=== PATIENT | male | born 1950 | race Caucasian/White ===

== ENCOUNTER 2019-08-23 06:12 | Inpatient (IN) | payer MEDICARE ==
[2019-08-23] MEDS ORDERED: Midazolam HCl 2 mg/2 ml Vial ONE (06:33)
[2019-08-23] MEDS ORDERED: Fentanyl 100 MCG/2 ML VIAL ONE ×3 (06:33→10:06)
[2019-08-23] MEDS ORDERED: Sodium Chloride 0.9% 10 ML ONE (07:08)
[2019-08-23 07:13] LABS: #Eosinphils 0.1 thou/uL (0.0-0.7); #Lymphocytes 1.4 thou/uL (1.20-3.40); #Monocytes 0.4 thou/uL (0.11-0.59); #Neutrophils 2.3 thou/uL (1.40-6.50); %Basophils 0.7 % (0.0-1.0); %Eosinophils 3.1 % (0.0-10.0); %Monocytes 9.9 % (0.0-10.0); %Neutrophils 54.3 % (42.0-75.0); Hemoglobin 14.3 g/dL (14.0-18.0); Mean Corpuscular HGB CONC 33.9 g/dL (32.0-36.0); Mean Corpuscular Hemoglobin 31.8 pg (27.0-31.0); Mean Corpuscular Volume 93.9 fL (78.0-98.0); Mean Platelet Volume 8.1 fL (7.4-10.4); Platelet Count 149 thou/uL (130-400); RBC Distribution Width 12.3 % (11.5-14.5); Red Blood Cell (RBC) Count 4.48 mill/uL (4.70-6.10); White Blood Cell (WBC) Count 4.3 thou/uL (4.8-10.8)
[2019-08-23 07:23] LABS: Anion Gap 9 mmol/L (10-20); BUN (Urea Nitrogen) 17 mg/dL (8.4-25.7); Calc. Creatinine Clearance 99 mL/min (70-130); Calcium 8.7 mg/dL (7.8-10.44); Carbon Dioxide 27 mmol/L (23-31); Chloride 109 mmol/L (98-107); Estimated GFR-MDRD Greater than 90; Glucose 91 mg/dL (80-115); Potassium 4.2 mmol/L (3.5-5.1); Sodium 141 mmol/L (136-145)
[2019-08-23] MEDS ORDERED: Promethazine HCl 25 MG/ML VIAL IM PRN ×2 (09:46→10:04)
[2019-08-23] MEDS ORDERED: Ondansetron HCl/PF 4 MG/2 ML Vial IVP PRN ×2 (09:46→10:19)
[2019-08-23] MEDS ORDERED: Promethazine HCl 25 MG/ML VIAL SLOW IVP PRN (09:46)
[2019-08-23] MEDS ORDERED: Promethazine HCl 12.5 MG SUPP PR PRN (10:04)
[2019-08-23] MEDS ORDERED: Morphine 4 MG/ML VIAL SLOW IVP PRN (10:04)
[2019-08-23] MEDS ORDERED: Milk Of Magnesia 30 ML UDCUP PO PRN (10:04)
[2019-08-23] MEDS ORDERED: diphenhydrAMINE 25 MG CAP PO PRN (10:04)
[2019-08-23] MEDS ORDERED: traMADol HCl 50 MG TAB PO PRN ×2 (10:04)
[2019-08-23] MEDS ORDERED: diphenhydrAMINE 50 MG/ML VIAL IVP PRN (10:04)
[2019-08-23] MEDS ORDERED: tiZANidine HCl 4 MG TAB PO PRN ×2 (10:04→16:35)
[2019-08-23] MEDS ORDERED: Mag-Al 1200 mg/1200 mg/30 ML UDCUP PO PRN (10:04)
[2019-08-23] MEDS ORDERED: Promethazine 25 MG TAB PO PRN (10:04)
[2019-08-23] MEDS ORDERED: Ondansetron PF 4 MG/2 ML Vial IVP PRN (10:16)
[2019-08-23] MEDS ORDERED: Non-Formulary Medication 1 EACH PO PRN (10:19)
[2019-08-23] MEDS ORDERED: PACU-Morphine 4MG/ML VIAL SLOW IVP PRN ×2 (10:19→10:23)
[2019-08-23] MEDS ORDERED: Morphine 4 MG/ML VIAL ONE (10:19)
[2019-08-23] MEDS ORDERED: Morphine Sulfate 2 MG/ML SYRINGE SLOW IVP PRN (10:19)
[2019-08-23] MEDS ORDERED: Promethazine HCl 25 MG/ML VIAL IM/IV PRN (10:19)
[2019-08-23] MEDS ORDERED: Morphine 2 MG/ML SYRINGE SLOW IVP PRN (10:30)
[2019-08-23] MEDS ORDERED: Morphine 2 MG/ML SYRINGE ONE ×2 (10:39→11:18)
[2019-08-23 12:12] VITALS: BMI 26.3
[2019-08-23] MEDS: Sodium Chloride 0.9% 1,000 ML IV SCH (12:23)
[2019-08-23] MEDS ORDERED: PROPOFOL 200 MG/20 ML VIAL ONE (13:14)
[2019-08-23] MEDS ORDERED: Dexamethasone 20 MG/5 ML VIAL ONE (13:14)
[2019-08-23] MEDS ORDERED: Ketorolac Tromethamine 30 MG/ML VIAL ONE (13:14)
[2019-08-23] MEDS ORDERED: ePHEDrine 50 MG/ML VIAL ONE (13:14)
[2019-08-23] MEDS ORDERED: Rocuronium Bromide 10 MG/ML (10ML VIAL) ONE (13:14)
[2019-08-23] MEDS ORDERED: Ondansetron PF 4 MG/2 ML Vial ONE (13:14)
[2019-08-23] MEDS ORDERED: Glycopyrrolate 0.2 MG/ML 5 ML SYRINGE ONE (13:14)
[2019-08-23] MEDS: CEFAZOLIN 2 GM in Premix Bag 1 BAG IVPB SCH ×2 (14:20→22:15)
[2019-08-23] MEDS: HYDROcodone/Acetaminophen 10/325 mg Tablet PO PRN ×3 (14:21→22:14)
--- NOTE | 2019-08-23 15:52 | OP ---
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 PROCEDURE PERFORMED: Anterior cervical diskectomy, C3 through C6; interbody arthrodesis; intervertebral biomechanical device; local morselized autograft; demineralized bone matrix; anterior titanium instrumentation, C3 through C6. DESCRIPTION OF PROCEDURE: The patient was brought to the operating room and intubated. He was positioned supine with head in modest extension on a gel-filled donut. An incision was made in the right precervical area and dissected medial to the sternocleidomastoid muscle, identified the anterior cervical spinal, and the level was confirmed by x-ray. Debrided the anterior osteophytes, placed distraction across the disk spaces, and completely decompressed the intervertebral disk at C3-C4, C4-C5 and C5-C6, completely decompressing the neural elements. Bony endplates were then decorticated for the purpose of arthrodesis and appropriate-sized intervertebral biomechanical PEEK device was brought into the field, filled with demineralized bone matrix and local morselized autograft, and tapped into place securely at C3-C4 and at C4-C5. Next, an anterior plate was brought into the field and secured to C3, C4, C5, and C6 using two 14-mm screws at each level. The wound was then extensively irrigated and MAC hemostasis was secured. The wound was closed in anatomic layers over drain. Job ID: [id number]
[2019-08-23] MEDS ORDERED: Cepastat Lozenges 1 LOZ PO PRN (16:47)
[2019-08-23] MEDS ORDERED: Cepastat Lozenges 1 LOZ PO SCH (17:00)
[2019-08-23] MEDS ORDERED: Chloraseptic Spray 180 ml Bottle PO PRN (17:14)
--- NOTE | 2019-08-23 17:22 | CON ---
DATE OF CONSULTATION: 08/23/2019 PRIMARY CARE PROVIDER: Out of town, [place]. CHIEF COMPLAINT: Management of medical comorbidities. HISTORY OF PRESENT ILLNESS: Mr. Huitron is a pleasant 69-year-old gentleman, who was seen at [facility] on August 23, 2019. Earlier today, he underwent anterior cervical diskectomy, C3 through C6; interbody arthrodesis, intervertebral biomechanical device, local morselized autograft, demineralized bone matrix, and anterior titanium instrumentation, C3 through C6. Hospitalist Service has been consulted by Neurosurgery Service for management of medical comorbidities. Mr. Huitron reports discomfort at the surgical site. He also reports sore throat. He denies any chest pain or shortness of breath. He denies any cough, fevers, or chills. He denies any nausea or vomiting. He denies any abdominal pain. REVIEW OF SYSTEMS: All systems were reviewed and found to be negative except for the pertinent positives mentioned above. PAST MEDICAL HISTORY: Hypertension; dyslipidemia; coronary artery disease, status post PCI with stents; nephrolithiasis; and restless legs syndrome. PAST SURGICAL HISTORY: Hernia surgery x2, nose surgery, PCI with coronary stents, and surgery for nephrolithiasis. SOCIAL HISTORY: The patient is an ex-smoker. He denies any alcohol use or recreational drug use. FAMILY HISTORY: Significant for myocardial infarction in both parents. ALLERGIES: NO KNOWN DRUG ALLERGIES. HOME MEDICATIONS: 1. Tylenol No. 3. 2. Aspirin 81 mg daily. 3. Lipitor 80 mg in the evening. 4. Coreg 3.125 mg in the evening. 5. Vitamin D3 2000 units two times a day. 6. Prozac 40 mg daily. 7. Folic acid 0.8 mg daily. 8. Gabapentin 800 mg three times a day. 9. Levocetirizine 5 mg daily. 10. Lisinopril 5 mg daily. 11. Singulair 10 mg daily. 12. Pentoxifylline 400 mg two times a day. 13. Pramipexole 0.5 mg in the evening. 14. Ranitidine 150 mg two times a day. 15. Trazodone 100 mg at bedtime. 16. Tizanidine p.r.n. PHYSICAL EXAMINATION: GENERAL: On examination, Mr. Huitron is awake and alert, not in acute distress. VITAL SIGNS: Blood pressure is 152/80, pulse 54, respiratory rate 16, and oxygen saturation 93% on room air. He is afebrile. HEENT: Eyes; no scleral icterus, no conjunctival pallor. ENT; moist mucosal membranes. No oropharyngeal erythema or exudates. NECK: Dressing over the neck, with a drain. Neck is supple. RESPIRATORY: Accessory muscles of breathing are not active. Chest wall movements are symmetric bilaterally. LUNGS: Clear to auscultation without wheeze, rhonchi, or crepitations. CARDIOVASCULAR: S1 and S2 are heard, regular. Peripheral pulses palpable. NEUROLOGIC: Cranial nerves 2 through 12 are intact. MUSCULOSKELETAL: The patient is moving all 4 extremities. ABDOMEN: Soft, nontender. Bowel sounds heard. SKIN: No rashes or subcutaneous nodules. LYMPHATIC: No lymphadenopathy. PSYCHIATRIC: Normal mood, normal affect. The patient is oriented to person, place, and time. LABORATORY DATA: Mr. Huitron's labs and investigations were reviewed. He has leukopenia with 4300 white cells, normal hemoglobin, normal platelet count. Normal sodium, normal potassium, and normal creatinine. ASSESSMENT AND PLAN: Mr. Huitron is a pleasant 69-year-old gentleman, who was seen at [facility] on August 23, 2019 for management of medical comorbidities. His problem list includes: 1. Hypertension: We will resume home medications including lisinopril and carvedilol. We will monitor vital signs and titrate antihypertensives as needed. 2. Dyslipidemia: We will continue Lipitor. 3. Coronary artery disease: Stable, the patient denies any chest pain. We will hold aspirin and pentoxifylline during the post neurosurgical period. 4. Restless legs syndrome: Continue Mirapex. 5. Sore throat: No obvious pharyngeal lesions, most likely secondary to intubation. We will start him on p.r.n. lozenges. Many thanks for allowing me to participate in your patient's care. Please feel free to contact me with any questions or concerns. LEVEL OF RISK: Moderate. LEVEL OF COMPLEXITY: Moderate. Job ID: [id number]
[2019-08-23] MEDS: Famotidine 20 MG TAB PO SCH (20:14)
[2019-08-23] MEDS: Gabapentin 400 MG CAP PO SCH (20:14)
[2019-08-23] MEDS ORDERED: Montelukast Sodium 10 mg Tablet PO SCH (21:00)
[2019-08-23] MEDS ORDERED: Pramipexole Di-HCl 0.25 MG TAB PO SCH (21:00)
[2019-08-23] MEDS ORDERED: Carvedilol 3.125 MG TAB PO SCH (21:00)
[2019-08-23] MEDS ORDERED: Atorvastatin Calcium 40 MG TAB PO SCH (21:00)
[2019-08-23] MEDS ORDERED: traZODone HCl 50 MG TAB PO SCH (21:00)
[2019-08-24] MEDS: HYDROcodone/Acetaminophen 10/325 mg Tablet PO PRN ×3 (02:12→10:34)
[2019-08-24] MEDS: Sodium Chloride 0.9% 1,000 ML IV SCH (02:16)
[2019-08-24] MEDS: CEFAZOLIN 2 GM in Premix Bag 1 BAG IVPB SCH (06:01)
[2019-08-24 08:13] VITALS: BP 138/76; TEMP 97.4
--- NOTE | 2019-08-24 08:52 | DIS ---
DATE OF ADMISSION: 08/23/2019 DATE OF DISCHARGE: 08/24/2019 HOSPITAL COURSE: The patient is a 69-year-old male, who was recently seen in our office for progressive neck pain and found to have degenerative changes from C3-C6. He underwent C3-C6 ACDF on 08/23/2019. Following the surgery, he was transitioned to the Med/Surg floor, where his pain has been well-controlled with p.o. medications. He has had some mild dysphagia, but is otherwise tolerating a regular diet, and he is voiding appropriately. He has been ambulating without difficulty in the hallways. He did have a GINA drain placed intraoperatively which had 85 mL of output over the first night. On exam this morning, the patient is awake, alert, in no acute distress. He is able to tolerate p.o. fluids in my presence this morning. He has free active range of motion of all extremities. No focal motor weakness. His incision is clean, dry, intact. Incision is soft. There is a tiny amount of blood in the GINA drain. PLAN: We will plan to have the GINA drain removed and dismiss the patient to home. I have discussed home care precautions. We will follow up with the patient in 2 weeks. He has been provided with scripts for [place] and Zanaflex. Job ID: [id number]
[2019-08-24] MEDS ORDERED: FLUoxetine HCl 20 MG CAP PO SCH (09:00)
[2019-08-24] MEDS ORDERED: Folic Acid 1 MG TAB PO SCH (09:00)
[2019-08-24] MEDS ORDERED: Loratadine 10 MG TAB PO SCH (09:00)
[2019-08-24] MEDS ORDERED: Lisinopril 5 MG TAB PO SCH (09:00)
[2019-08-24] MEDS: Famotidine 20 MG TAB PO SCH (09:07)
[2019-08-24] MEDS: Gabapentin 400 MG CAP PO SCH (09:09)
--- NOTE | 2019-08-26 22:51 | EKG ---
Test Reason : PREOP Blood Pressure : / mmHG Vent. Rate : 049 BPM Atrial Rate : 049 BPM P-R Int : 180 ms QRS Dur : 086 ms QT Int : 452 ms P-R-T Axes : 032 -11 013 degrees QTc Int : 408 ms Sinus bradycardia Minimal voltage criteria for LVH, may be normal variant Borderline ECG When compared with ECG of 15-DEC-2009 01:28, Vent. rate has decreased BY 30 BPM Confirmed by Dena SWIFT ([id number]) on 08/26/2019 10:50:51 PM Referred By: MAE Confirmed By:Dena SWIFT
== END 2019-08-24 11:25 | disposition home or self-care (01) | DRG 473 ==
LOC: SDC 06:12 → SURG B 11:46
PROVIDERS: ADMIT Neurological Surgery; ATTEND Neurological Surgery
PROC: 0RG20A0 Fusion of 2 or more Cervical Vertebral Joints with Interbody Fusion Device, Anterior Approach, Anterior Column, Open Approach (ICD-10-PCS; principal; 2019-08-23)
PROC: 0RB30ZZ Excision of Cervical Vertebral Disc, Open Approach (ICD-10-PCS; 2019-08-23)
DX: M47.22 Other spondylosis with radiculopathy, cervical region (principal); I10 Essential (primary) hypertension; E78.5 Hyperlipidemia, unspecified; I25.10 Atherosclerotic heart disease of native coronary artery without angina pectoris; G25.81 Restless legs syndrome; F32.9 Major depressive disorder, single episode, unspecified; Z95.5 Presence of coronary angioplasty implant and graft; Z98.890 Other specified postprocedural states; Z87.891 Personal history of nicotine dependence; Z79.82 Long term (current) use of aspirin; Z79.899 Other long term (current) drug therapy; R13.10 Dysphagia, unspecified
CPT/HCPCS: 36415; 76000; 80048; 85025; 93005; 93010; C1713; C1776; J0690; J1100; J1885; J2250; J2270; J2405; J2704; J3010; J3490

== ENCOUNTER 2019-09-14 14:15 | Outpatient (CLI) | payer MEDICARE ==
--- NOTE | 2019-09-14 14:37 | RAD ---
Cervical spine 3 views HISTORY: Neck pain. Prior surgery. FINDINGS: Anterior fixation plate and screws in place at the C3-4-5-6 levels. No perihardware lucency . Metallic markers associated with interbody fusion material within the confines of the disc spaces at the postoperative level, extending to the far anterior margin. Disc space narrowing at the C6-7 level. Minimal degenerative spondylolisthesis at the C2-3 level. Horace tebral body heights are maintained. No acute fracture or dislocation. IMPRESSION: Anterior operative fixation of the cervical spine. No evidence of complication. Mild degenerative changes.
== END 2019-09-14 14:16 | disposition home or self-care (01) ==
LOC: TBSIIMAG 14:15
PROVIDERS: ATTEND Neurological Surgery
DX: M47.22 Other spondylosis with radiculopathy, cervical region (principal)
CPT/HCPCS: 72040